=== PATIENT | male | born 1965 | race Asian ===

== ENCOUNTER 2021-10-18 14:26 | Emergency (ER) | payer OTHER ==
[~2021-10-18] VITALS: Ht 172.7 cm; Wt 90.9 kg
[2021-10-18 14:48] VITALS: BP 116/75
== END 2021-10-18 15:03 | disposition home or self-care (01) ==
LOC: EMS 14:30
DX: R42 Dizziness and giddiness (principal); F31.9 Bipolar disorder, unspecified; F41.9 Anxiety disorder, unspecified; E11.9 Type 2 diabetes mellitus without complications; E78.00 Pure hypercholesterolemia, unspecified; I10 Essential (primary) hypertension
CPT/HCPCS: 82962; 99283